=== PATIENT | female | born 1980 | race Caucasian/White ===

== ENCOUNTER 2025-01-02 13:47 | Inpatient (IN) | payer OTHER ==
[2025-01-02 13:59] VITALS: BMI 31.2
[2025-01-02] MEDS: ACETAMINOPHEN 500 MG TABLET (FP) PO ONE (14:40)
[2025-01-02] MEDS: SODIUM CHLORIDE 1,000 ML IV STA (14:40)
[2025-01-02 14:46] LABS: BASO % 0.4 % (0-2.0); HEMATOCRIT 19.6 % (32.4-45.2); LYMPH % 6.9 % (8-40); MCHC 27.3 g/dl (32.0-36.0); MEAN CELL VOLUME 67.4 fl (80-96); MEAN PLT VOLUME 7.1 fl (7.5-11.1); MONO % 2.1 % (3.8-10.2); NEUT % 90.6 % (42.8-82.8); PLATELET COUNT 490 10^3/uL (134-434); RDW 22.4 % (11.6-15.6); WHITE BLOOD COUNT 15.2 K/mm3 (4.0-10.0)
[2025-01-02 14:48] LABS: MCH 18.4 pg (25.7-33.7)
[2025-01-02 14:50] LABS: HEMOGLOBIN 5.3 GM/dL (10.7-15.3)
[2025-01-02] MEDS ORDERED: ONDANSETRON 4 MG/2 ML VIAL ONE (15:00)
[2025-01-02] MEDS ORDERED: ACETAMINOPHEN INJECTION 100 ML ONE (15:00)
[2025-01-02] MEDS: ONDANSETRON 4 MG/2 ML VIAL IVPUSH ONE (15:08)
[2025-01-02 15:12] LABS: ANISOCYTOSIS 3+; MACROCYTOSIS 1+; OVALOCYTE 1+
[2025-01-02 15:16] LABS: POTASSIUM 4.2 mmol/L (3.5-5.1)
[2025-01-02 15:18] LABS: ALBUMIN 3.3 g/dl (3.4-5.0); CALCIUM 8.5 mg/dL (8.5-10.1)
[2025-01-02 15:20] LABS: INR 1.13 (0.83-1.09); PROTHROMBIN TIME (PATIENT) 12.4 SEC (9.7-13.0)
[2025-01-02 15:22] LABS: CREATININE 0.8 mg/dL (0.55-1.3)
[2025-01-02 15:23] LABS: ACTIVATED PTT 22.5 SECONDS (25.2-36.5)
[2025-01-02 15:23] LABS: BILIRUBIN,TOTAL 0.4 mg/dL (0.2-1); TOT PROT 6.8 g/dl (6.4-8.2)
[2025-01-02] MEDS ORDERED: ESTROGENS,CONJUGATED 25 MG VIAL IVPB ONE (16:05)
[2025-01-02] MEDS ORDERED: ESTROGENS CONJUGATED IVPB ONE (17:00)
[2025-01-02] MEDS ORDERED: SODIUM CHLORIDE IVPB ONE (17:00)
[2025-01-02] MEDS: SODIUM CHLORIDE IVPB ONE (17:40)
[2025-01-02] MEDS: ESTROGENS CONJUGATED IVPB ONE (17:40)
[2025-01-02] MEDS: SODIUM CHLORIDE 1,000 ML IV SCH (18:01)
[2025-01-02 20:10] VITALS: RESP 18
[2025-01-02] MEDS: ACETAMINOPHEN 325 MG TABLET (FP) PO PRN (20:16)
[2025-01-02 20:53] LABS: BASO % 0.5 % (0-2.0); HEMATOCRIT 33.4 % (32.4-45.2); HEMOGLOBIN 10.5 GM/dL (10.7-15.3); MCH 24.2 pg (25.7-33.7); MCHC 31.5 g/dl (32.0-36.0); MEAN PLT VOLUME 8.1 fl (7.5-11.1); NEUT % 80.5 % (42.8-82.8); PLATELET COUNT 269 10^3/uL (134-434); RBC 4.33 M/mm3 (3.60-5.2); RDW 22.7 % (11.6-15.6)
[2025-01-02] MEDS: SODIUM CHLORIDE IVPB SCH (21:26)
[2025-01-02] MEDS: ESTROGENS CONJUGATED IVPB SCH (21:26)
[2025-01-02] MEDS ORDERED: ESTROGENS,CONJUGATED 25 MG VIAL IVPB SCH (23:55)
[2025-01-03] MEDS ORDERED: SODIUM CHLORIDE IVPB SCH
[2025-01-03] MEDS ORDERED: ESTROGENS CONJUGATED IVPB SCH
[2025-01-03] MEDS: IBUPROFEN 600 MG TABLET (FP) PO PRN (05:09)
[2025-01-03 08:19] LABS: BASO % 0.2 % (0-2.0); EOS % 0.1 % (0-4.5); HEMATOCRIT 29.6 % (32.4-45.2); HEMOGLOBIN 9.6 GM/dL (10.7-15.3); LYMPH % 12.1 % (8-40); MCH 24.4 pg (25.7-33.7); MCHC 32.5 g/dl (32.0-36.0); MEAN CELL VOLUME 75.1 fl (80-96); MEAN PLT VOLUME 7.3 fl (7.5-11.1); MONO % 4.9 % (3.8-10.2); NEUT % 82.7 % (42.8-82.8); PLATELET COUNT 276 10^3/uL (134-434); RBC 3.95 M/mm3 (3.60-5.2); RDW 21.8 % (11.6-15.6); WHITE BLOOD COUNT 17.2 K/mm3 (4.0-10.0)
[2025-01-04 08:10] LABS: FOLLICLE STIMULATING HORMONE 6.4 mIU/mL (.); LUTEINIZING HORMONE 3.8 mIU/mL (.)
[2025-01-04 08:17] LABS: BASO % 0.7 % (0-2.0); EOS % 0.8 % (0-4.5); HEMATOCRIT 24.6 % (32.4-45.2); HEMOGLOBIN 7.9 GM/dL (10.7-15.3); LYMPH % 21.9 % (8-40); MCH 24.5 pg (25.7-33.7); MCHC 32.2 g/dl (32.0-36.0); MEAN CELL VOLUME 75.9 fl (80-96); MEAN PLT VOLUME 7.3 fl (7.5-11.1); MONO % 5.8 % (3.8-10.2); NEUT % 70.8 % (42.8-82.8); PLATELET COUNT 284 10^3/uL (134-434); RBC 3.23 M/mm3 (3.60-5.2); RDW 22.7 % (11.6-15.6)
[2025-01-04 10:04] VITALS: BP 114/72; PULSE 90; TEMP 99.4
== END 2025-01-04 12:45 | disposition home or self-care (01) | DRG 761 ==
LOC: JER 13:47 → JERBED 17:08 → J3W 18:36
PROVIDERS: ADMIT Student in an Organized Health Care Education/Training Program; ATTEND Student in an Organized Health Care Education/Training Program
DX: D25.9 Leiomyoma of uterus, unspecified (principal); N93.9 Abnormal uterine and vaginal bleeding, unspecified; R00.0 Tachycardia, unspecified; I95.9 Hypotension, unspecified
CPT/HCPCS: 36415; 36430; 36511; 76830-TC; 80053; 83001; 83002; 83735; 84146; 84443; 84703; 85025; 85610; 85730; 86900; 86922; 93005; 93010; 99291; J1410; P9017; P9038; P9058

== ENCOUNTER 2025-07-20 06:34 | Inpatient (IN) | payer OTHER ==
[2025-07-15 13:15] VITALS: BMI 31.4
[2025-07-20] MEDS ORDERED: LIDOCAINE HCL/PF 2% SDV 5ML VIAL ONE (09:19)
[2025-07-20] MEDS ORDERED: SUCCINYLCHOLINE CHLORIDE 200 MG/10 ML SYRINGE ONE (09:19)
[2025-07-20] MEDS ORDERED: PROPOFOL 20 ML ONE (09:19)
[2025-07-20] MEDS ORDERED: ROCURONIUM BROMIDE 50 MG/5 ML SYRINGE ONE (09:20)
[2025-07-20] MEDS ORDERED: MIDAZOLAM HCL 2 MG/2 ML SINGLE DOSE VIAL ONE (09:20)
[2025-07-20] MEDS ORDERED: DEXAMETHASONE SOD PHOSPHATE 4 MG/1 ML VIAL ONE (10:36)
[2025-07-20] MEDS ORDERED: ONDANSETRON 4 MG/2 ML VIAL ONE (12:27)
[2025-07-20] MEDS ORDERED: KETOROLAC TROMETHAMINE 30 MG/1 ML VIAL ONE (12:27)
[2025-07-20] MEDS ORDERED: SUGAMMADEX SODIUM 200 MG/2 ML VIAL ONE (12:28)
[2025-07-20] MEDS ORDERED: ONDANSETRON 4 MG/2 ML VIAL IVPUSH PRN (12:59)
[2025-07-20] MEDS ORDERED: PROMETHAZINE HCL 25 MG/1 ML VIAL IVPB PRN (12:59)
[2025-07-20] MEDS ORDERED: DOCUSATE SODIUM 100 MG CAPSULE (FP) PO PRN (13:12)
[2025-07-20] MEDS ORDERED: ACETAMINOPHEN INJECTION 100 ML ONE (13:25)
[2025-07-20] MEDS: ACETAMINOPHEN 1000 MG/100 ML BAG IVPB ONE (13:30)
[2025-07-20] MEDS: LACTATED RINGERS SOLUTION 1,000 ML IV SCH (15:05)
[2025-07-20] MEDS: TRANEXAMIC ACID 1000 MG/10 ML VIAL IVPUSH ONE (15:06)
[2025-07-20] MEDS: CEFAZOLIN 2 GM in DEXTROSE 5%-WATER - 100 ML IVPB ONE (15:06)
[2025-07-20 18:19] VITALS: RESP 18
[2025-07-20] MEDS: ACETAMINOPHEN 1000 MG/100 ML BAG IVPB PRN (20:22)
[2025-07-21] MEDS ORDERED: ACETAMINOPHEN INJECTION 100 ML ONE (01:34)
[2025-07-21 07:27] LABS: ABSOLUTE IMMATURE GRANULOCYTES 0.06 x10^3/uL (0.0-0.031); BASOPHILS # 0.02 x10^3/uL (0.01-0.08); EOSINOPHIL % 0.2 % (0.7-5.8); EOSINOPHILS # 0.02 x10^3/uL (0.04-0.36); MCHC 29.8 g/dl (32.2-35.5); MEAN CELL VOLUME 94.1 fl (79.4-94.8); MEAN PLT VOLUME 9.6 fl (9.4-12.3); MONOCYTE # 0.71 x10^3/uL (0.24-0.86); MONOCYTE % 6.9 % (4.7-12.5); RDW 14.5 % (12.2-17.1)
[2025-07-21 07:48] LABS: GLUCOSE,RANDOM 102.0 mg/dL (74-106); TOT PROT 5.7 g/dl (6.4-8.2)
[2025-07-21 07:49] LABS: CO2 23.0 mmol/L (21-32)
[2025-07-21 07:51] LABS: ALK PHOS 44.0 U/L (40-150)
[2025-07-21 07:54] LABS: CREATININE 0.67 mg/dL (0.55-1.3); SGOT/AST 15.0 U/L (5-34); SGPT/ALT 11.0 U/L (0-55)
[2025-07-21] MEDS: IBUPROFEN 600 MG TABLET (FP) PO PRN (15:17)
[2025-07-21 19:51] VITALS: BP 111/61; PULSE 89; TEMP 98.1
== END 2025-07-21 19:49 | disposition home or self-care (01) | DRG 743 ==
LOC: J2C 06:34 → EDSTATUS 10:00 → J3W 14:53
PROVIDERS: ADMIT Obstetrics & Gynecology; ATTEND Obstetrics & Gynecology
PROC: 0UT90ZL Resection of Uterus, Supracervical, Open Approach (ICD-10-PCS; principal; 2025-07-20 10:00)
PROC: 0UT70ZZ Resection of Bilateral Fallopian Tubes, Open Approach (ICD-10-PCS; 2025-07-20 10:00)
DX: D25.9 Leiomyoma of uterus, unspecified (principal); N92.1 Excessive and frequent menstruation with irregular cycle; N80.03 Adenomyosis of the uterus
CPT/HCPCS: 36415; 80053; 85025; 88305-TC; 94010; 94760